=== PATIENT | male | born 1940 ===

== ENCOUNTER → 2018-06-14 | Outpatient (CLI) | payer MEDICARE, OTHER ==
[~2018-06-14] MED LIST: AZIT-17 PO; METH4TAB66 PO
--- NOTE | 2018-06-14 15:03 | RADIOLOGY IMAGING REPORT ---
FACILITY: [facility] [place] PATIENT NAME: Shashi Lezama : 1940 MR: [id number] V: [id number] EXAM DATE: ORDERING PHYSICIAN: BARON HODGE TECHNOLOGIST: Location: [facility] [place] Patient: Shashi Lezama : 1940 Visit/Account:[id number] Date of Sevice: 06/14/2018 CHEST PA AND LAT HISTORY: Cough. COMPARISON: None available. FINDINGS: Lines/tubes: None. Lungs/pleura: Mild bibasilar atelectasis. Elevated left hemidiaphragm versus large hernia into the lower left chest containing multiple bowel loops. Heart: Negative. Mediastinum: Negative. Bony structures/body wall: Surgical clips projecting above the left clavicle. Degenerative changes in the spine. No acute osseous findings. IMPRESSION: 1. Mild bibasilar atelectasis. Otherwise no acute cardiopulmonary process. 2. Elevated left hemidiaphragm versus large hernia into the left lower chest containing multiple bow el loops. Report Dictated By: Ye Pederson MD at 06/14/2018 2:55 PM Report E-Signed By: Ye Pederson MD at 06/14/2018 2:58 PM WSN:[email or web address]
== END ==
LOC: RAD 14:29
PROVIDERS: ATTEND Otolaryngology
DX: J98.11 Atelectasis (principal); R91.8 Other nonspecific abnormal finding of lung field
CPT/HCPCS: 71046